=== PATIENT | female | born 1960 | race Caucasian/White ===

== ENCOUNTER 2022-10-24 08:00 | Outpatient (CLI) | payer BC ==
[~2022-10-24] VITALS: Ht 165.1 cm; Wt 72.6 kg
== END 2022-10-24 17:00 | disposition home or self-care (01) ==
LOC: SLB 08:00 → EDSTATUS 10-28 07:30
PROVIDERS: ATTEND Obstetrics & Gynecology
DX: R19.00 Intra-abdominal and pelvic swelling, mass and lump, unspecified site (principal); Z20.822 Contact with and (suspected) exposure to COVID-19
CPT/HCPCS: 36415; U0003